=== PATIENT | female | born 1995 | race Two or more races ===

== ENCOUNTER 2020-05-15 20:07 | Emergency (ER) | payer OTHER ==
[~2020-05-15] VITALS: Ht 157.5 cm; Wt 93.1 kg
[2020-05-15 20:27] LABS: BILIRUBIN,URINE NEGATIVE (NEG); CLARITY,URINE CLEAR; COLOR,URINE YELLOW; NITRITE,URINE NEGATIVE (NEG); PH,URINE 6.5 (<5.0-8.0); PROTEIN,URINE NEGATIVE (NEG-TRACE); UROBILINOGEN,URINE 0.2 mg/dL (0.2 mg/dL)
[2020-05-15 20:32] LABS: RBC,URINE >40 /HPF (0-2)
[2020-05-15 20:33] LABS: BACTERIA,URINE 0 /HPF (0-FEW); WBC,URINE OCC /HPF (0-4)
--- NOTE | 2020-05-15 20:39 | PHYS DOC ---
General Adult EDM: Chief Complaint: VAGINAL BLEEDING HPI: HPI: Patient is a 25 year old female who presents with states for the last 2 weeks has had intermittent menstrual tract cramping with vaginal bleeding going through 2 pads a day. She states only past medical history she has is having 1 day be vaginally without complication. Patient states she does have a OB doctor but did not have an appointment with the doctor yet. Patient's last menstrual period was April 16. She states she is taken 2 different tests all saying that it is positive. She states that she think she is approximately 5 weeks . Patient complains of left lower abdominal pain also. Patient rates her pain a 3 out of 10 and is nonradiating. States she is been taking Tylenol for her pain. (BRENNAN NAVARRO APRN) Review of Systems: Review of Systems: Constitutional: Denies fever or chills. [] Eyes: Denies change in visual acuity. [] HENT: Denies nasal congestion or sore throat. [] Respiratory: Denies cough or shortness of breath. [] Cardiovascular: Denies chest pain or edema. [] GI: + Left lower abdominal pain, denies nausea, vomiting, bloody stools or diarrhea. [] : Denies dysuria.+ Vaginal bleeding in [] Musculoskeletal: Denies back pain or joint pain. [] Integument: Denies rash. [] Neurologic: Denies headache, focal weakness or sensory changes. [] Endocrine: Denies polyuria or polydipsia. [] Lymphatic: Denies swollen glands. [] Psychiatric: Denies depression or anxiety. [] (BRENNAN NAVARRO APRN) Heart Score: Risk Factors: Risk Factors: DM, Current or recent (<one month) smoker, HTN, HLP, family history of CAD, obesity. Risk Scores: Score 0 - 3: 2.5% MACE over next 6 weeks - Discharge Home Score 4 - 6: 20.3% MACE over next 6 weeks - Admit for Clinical Observation Score 7 - 10: 72.7% MACE over next 6 weeks - Early Invasive Strategies (BRENNAN NAVARRO APRN) Physical Exam: PE: Constitutional: Well developed, well nourished, no acute distress, non-toxic appearance. [] HENT: Normocephalic, atraumatic, bilateral external ears normal, oropharynx moist, no oral exudates, nose normal. [] Eyes: PERRLA, EOMI, conjunctiva normal, no discharge. [] Neck: Normal range of motion, no tenderness, supple, no stridor. [] Cardiovascular:Heart rate regular rhythm, no murmur [] Lungs & Thorax: Bilateral breath sounds clear to auscultation [] Abdomen: Bowel sounds normal, soft, left lower tenderness, no masses, no pulsatile masses. [] Skin: Warm, dry, no erythema, no rash. [] Back: No tenderness, no CVA tenderness. [] Extremities: No tenderness, no cyanosis, no clubbing, ROM intact, no edema. [] Neurologic: Alert and oriented X 3, normal motor function, normal sensory function, no focal deficits noted. [] Psychologic: Affect normal, judgement normal, mood normal. [] (BRENNAN NAVARRO APRN) Current Patient Data: Labs: Laboratory Tests Test 05/15/20 20:23 POC Urine HCG, Qualitative Hcg positive (Negative) (BRENNAN NAVARRO APRN) EKG: EKG: [] (BERNNAN NAVARRO APRN) Radiology/Procedures: Radiology/Procedures: [] Impression: [facility] [address] [place] [address] IMAGING REPORT Signed PATIENT: MACARIO EATON ACCOUNT: [id number] : 1995 LOCATION: ER AGE: 25 SEX: F EXAM STATUS: PRE ER ORD. PHYSICIAN: BRENNAN NAVARRO APRN REASON: vag bleeding PROCEDURE: OB <14 WKS W/TV US OB <14 WKS +TV History: Reason: vag bleeding / Spl. Instructions: / History: Comparison: None. Technique: Grayscale and color Doppler imaging of the pelvis was performed using transabdominal and transvaginal technique. Findings: The uterus measures 7.0 x 5.0 x 4.0 cm. No evidence of intrauterine gestational sac. Right ovary measures 4.6 x 2.2 x 2.1 cm. Left ovary measures 3.2 x 2.7 x 1.9 cm. Normal Doppler flow to the ovaries bilaterally. No adnexal masses are seen. IMPRESSION: 1. No evidence of intrauterine gestational sac, may relate to early . Recommend short-term ultrasound follow-up and serial beta-hCG testing. Electronically signed by: Gal Chávez DO (05/15/2020 9:16 PM) [facility] DICTATED and SIGNED BY: GAL CHÁVEZ DO DATE: 05/15/20 [id number] (BRENNAN NAVARRO APRN) Course & Med Decision Making: Course & Med Decision Making Pertinent Labs and Imaging studies reviewed. (See chart for details) See HPI. Patient is alert and oriented x4. Speaks in full clear sentences. Skin pink warm and dry. Patient denies having any concerns for sexually transmitted disease, abnormal vaginal discharge or smell. She states that she will wait the 48 hours to see if anything comes back positive for the chlamydia and gonorrhea. Patient denies fever, nausea, vomiting, diarrhea, cough, shortness of air, chest pain, headache, dizziness, numbness or tingling, focal weakness. HCG is only 8. US shows no gestational sac. Pelvic Exam: Chucker present Abdomen: Soft but left lower tenderness External Genitalia: Normal Skin Speculum: Normal vaginal mucosa, small bloody cervical discharge Bimanual: No adnexal masses or tenderness, No CMT [] (BRENNAN NAVARRO APRN) Dragon Disclaimer: Dragon Disclaimer: This electronic medical record was generated, in whole or in part, using a voice recognition dictation system. (BRENNAN NAVARRO APRN) Departure Departure Impression: Primary Impression: Threatened miscarriage in early Disposition: 01 DC HOME SELF CARE/HOMELESS Condition: STABLE Referrals: JUANA CHAUHAN Jr, MD Patient Instructions: Vaginal Bleeding During , First Trimester Additional Instructions: FOLLOW UP WITH YOUR OB DOCTOR SOON POSSIBLE. IF YOU BEGIN GOING THROUGH MORE THAN 1 PAD A HOUR RETURN TO THE ED. Attending Signature Attending Signature I have reviewed the PA/WOOD TURNER's note and plan of care. I was available for consultation as needed during the patient's visit in the emergency department. I agree with the clinical impression, plan, and disposition. (RYAN WETZEL DO) BRENNAN NAVARRO APRN May 15, 2020 20:39 RYAN WETZEL DO May 17, 2020 02:15
[2020-05-15 20:44] LABS: BASO % 1 % (0-3); EOS # 0.3 x10^3/uL (0.0-0.7); EOS % 4 % (0-3); HEMATOCRIT 39.3 % (36.0-47.0); HEMOGLOBIN 13.5 g/dL (12.0-15.5); LYMPH # 1.9 x10^3/uL (1.0-4.8); LYMPH % 27 % (24-48); MEAN CORPUSCULAR HEMOGLOBIN 30 pg (25-35); MEAN CORPUSCULAR HGB CONC 34 g/dL (31-37); MEAN CORPUSCULAR VOLUME 88 fL (79-100); MONO # 0.5 x10^3/uL (0.0-1.1); MONO % 7 % (0-9); NEUT # 4.2 x10^3/uL (1.8-7.7); NEUT % 61 % (31-73); PLATELET COUNT 257 x10^3/uL (140-400); RED BLOOD COUNT 4.48 x10^6/uL (3.50-5.40); RED CELL DISTRIBUTION WIDTH 12.9 % (11.5-14.5); WHITE BLOOD COUNT 6.9 x10^3/uL (4.0-11.0)
[2020-05-15 20:55] LABS: CALCIUM 8.5 mg/dL (8.5-10.1); CREATININE 0.7 mg/dL (0.6-1.0); POTASSIUM 3.6 mmol/L (3.5-5.1)
[2020-05-15 21:01] LABS: ALBUMIN 3.8 g/dL (3.4-5.0); ALBUMIN/GLOBULIN RATIO 1.1 (1.0-1.7); TOTAL BILIRUBIN 0.3 mg/dL (0.2-1.0); TOTAL PROTEIN 7.3 g/dL (6.4-8.2)
--- NOTE | 2020-05-15 21:19 | RAD ---
US OB <14 WKS +TV History: Reason: vag bleeding / Spl. Instructions: / History: Comparison: None. Technique: Grayscale and color Doppler imaging of the pelvis was performed using transabdominal and t ransvaginal technique. Findings: The uterus measures 7.0 x 5.0 x 4.0 cm. No evidence of intrauterine gestational sac. Right ovary measures 4.6 x 2.2 x 2.1 cm. Left ovary measures 3.2 x 2.7 x 1.9 cm. Normal Doppler flow to the ovaries bilaterally. No adnexal masses are seen. IMPRESSION: 1. No evidence of intrauterine gestational sac, may relate to early . Recommend short-term ultrasound follow-up and serial beta-hCG testing. Electronically signed by: Gal Chávez DO (05/15/2020 9:16 PM) [facility]
[2020-05-15 21:33] VITALS: BP 131/84
[2020-05-18 22:10] LABS: GC PROBE Negative (Negative)
== END 2020-05-15 21:58 | disposition home or self-care (01) ==
LOC: ER 20:07
DX: O20.0 Threatened abortion (principal); Z3A.01 Less than 8 weeks gestation of pregnancy
CPT/HCPCS: 36415; 76801; 76817; 80053; 81001; 81025; 84702; 85025; 86850; 86900; 86901; 87491; 87591; 99284; Q0111